=== PATIENT | male | born 1950 ===

== ENCOUNTER 2024-05-02 06:30 | Outpatient (RCR) | payer MEDICARE, OTHER, SELFPAY | END 2024-06-04 14:12 | disposition home or self-care (01) | LOC: SOT 06:30 | PROVIDERS: Visit Provider Family Medicine | DX: M16.9 Osteoarthritis of hip, unspecified (principal); E66.01 Morbid (severe) obesity due to excess calories; I50.43 Acute on chronic combined systolic (congestive) and diastolic (congestive) heart failure | CPT/HCPCS: 97167 ==

== ENCOUNTER 2025-04-01 05:00 | Outpatient (RCR) | payer MEDICARE, SELFPAY | END 2025-05-01 23:59 | disposition home or self-care (01) | LOC: SOT 05:00 | PROVIDERS: Visit Provider Nurse Practitioner Family | DX: I50.9 Heart failure, unspecified (principal) | CPT/HCPCS: 97167 ==